=== PATIENT | male | born 1965 | race Two or more races ===

== ENCOUNTER 2020-10-28 05:35 | Day surgery (SDC) | payer OTHER ==
[~2020-10-28 05:35] MED LIST: EFFEXOR PO
[2020-10-28] MEDS ORDERED: PERCOCET 5-3251 EACH PO (09:30)
== END 2020-10-28 15:30 | disposition home or self-care (01) ==
LOC: CIR.AMB 05:35
PROVIDERS: ATTEND Surgery
DX: N48.6 Induration penis plastica (principal); Z20.822 Contact with and (suspected) exposure to COVID-19